=== PATIENT | male | born 1985 | race Caucasian/White ===

== ENCOUNTER 2020-12-21 00:20 | Inpatient (IN) | payer OTHER, SELFPAY ==
--- NOTE | 2020-12-21 | ECG_ITS ---
Test Reason : New admission. Check QTc Blood Pressure : / mmHG Vent. Rate : 057 BPM Atrial Rate : 057 BPM P-R Int : 136 ms QRS Dur : 088 ms QT Int : 432 ms P-R-T Axes : 056 066 058 degrees QTc Int : 420 ms Sinus bradycardia Otherwise normal ECG No previous ECGs available Referred By: Tonya Aguilar Electronically Signed By:Giuseppe Ahmadi
[2020-12-21 00:40] VITALS: BP 130/74; PULSE 70; RESP 18; TEMP 36.3; O2SAT 99
[2020-12-21 02:07] VITALS: BMI 23.7
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
[2020-12-21 08:24] VITALS: BP 121/84; PULSE 77; TEMP 36.4; O2SAT 99
[2020-12-21 08:45] VITALS: BP 121/84; PULSE 77
[2020-12-21] MEDS: lisinopriL 10 MG TABLET PO (08:45)
[2020-12-21] MEDS: Escitalopram Oxalate 20 MG TABLET PO (08:45)
[2020-12-21] MEDS: OXcarbazepine 300 MG TABLET PO ×2 (08:45→20:42)
[2020-12-21] MEDS: cloNIDine HCL 0.1 MG TABLET PO ×2 (08:45→20:42)
[2020-12-21 08:50] LABS: MANUAL DIFF FLAG NO
[2020-12-21 09:07] LABS: Basophils Percent Auto 0.8 % (0-2); Eosinophils Absolute Auto 0.3 X10*3/uL (0.0-0.4); Eosinophils Percent Auto 6.1 % (0-4); Hematocrit 41.5 % (42-52); Hemoglobin 14.1 g/dl (14.0-18.0); Imm Gran Abs Auto 0.01 X10*3/uL (0.00-0.03); Imm Gran Pct Auto 0.2 % (0.0-0.4); Lymphocytes Absolute Auto 1.7 X10*3/uL (1.2-4.9); Lymphocytes Percent Auto 33.5 % (20-40); Mean Corpuscular Hemoglobin 29.7 pg (27.0-33.0); Mean Corpuscular Volume 87.4 fL (80-98); Mean Platelet Volume 10.5 fL (9.4-12.4); Monocytes Absolute Auto 0.6 X10*3/uL (0.1-1.2); Monocytes Percent Auto 11.9 % (2-11); Neutrophils Absolute Auto 2.4 X10*3/uL (2.0-8.3); Neutrophils Percent Auto 47.5 % (45-73); Platelet Count 258 X10*3/uL (160-400); Red Blood Count 4.75 X10*6/uL (4.60-5.80); Red Cell Distribution Width 12.8 % (11.0-16.0)
[2020-12-21 09:41] LABS: Alanine Aminotransferase 20 U/L (0-40); Albumin Level 4.4 g/dL (3.5-5.0); Alkaline Phosphatase 60 U/L (39-117); Anion Gap 13 (12-20); Aspartate Amino Transferase 24 U/L (5-37); Bilirubin Total 0.8 mg/dL (0.0-1.0); Blood Urea Nitrogen 17 mg/dL (9-16); Calcium 9.5 mg/dL (8.4-10.2); Carbon Dioxide 26 mmol/L (22-29); Chloride 106 mmol/L (96-108); Creatinine Clr Calc Pharmacy 106.2; Estimated Glomerular Filt Rate > 60; Glucose Fasting 97 mg/dL (60-99); Potassium 4.2 mmol/L (3.3-5.1); Sodium 141 mmol/L (135-145); Total Protein 6.4 g/dL (6.5-8.0)
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
[2020-12-21 18:00] VITALS: BP 121/75; PULSE 82; RESP 18; TEMP 36.9; O2SAT 98
[2020-12-21 20:42] VITALS: BP 125/62; PULSE 60
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
[2020-12-22 06:00] VITALS: BP 116/75; PULSE 62; RESP 16; TEMP 36.6; O2SAT 100
--- NOTE | 2020-12-22 08:16 | ECG_ITS ---
Test Reason : SYNCOPE Blood Pressure : / mmHG Vent. Rate : 055 BPM Atrial Rate : 055 BPM P-R Int : 144 ms QRS Dur : 090 ms QT Int : 472 ms P-R-T Axes : 043 057 037 degrees QTc Int : 451 ms Sinus bradycardia Otherwise normal ECG When compared with ECG of 21-DEC-2020 14:04, T wave amplitude has increased in Anterior leads Referred By: Harinder Fritz Electronically Signed By:Giuseppe Ahmadi
[2020-12-22 08:40] LABS: Glucose, Whole Blood 104 mg/dL (60-115)
[2020-12-22 09:12] VITALS: BP 123/62; PULSE 61
[2020-12-22] MEDS: OXcarbazepine 300 MG TABLET PO ×2 (09:12→20:04)
[2020-12-22] MEDS: Escitalopram Oxalate 20 MG TABLET PO (09:12)
[2020-12-22] MEDS: lisinopriL 10 MG TABLET PO (09:12)
[2020-12-22] MEDS: cloNIDine HCL 0.1 MG TABLET PO ×2 (09:12→20:04)
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
[2020-12-22 10:11] LABS: Estimated Average Glucose 103 mg/dL; Hemoglobin A1c % 5.2 %
[2020-12-22 10:12] LABS: Cholesterol 189 mg/dL; HDL Cholesterol 69 mg/dL; LDL Cholesterol Calculated 113 mg/dl; Triglycerides 35 mg/dL
[2020-12-22 14:04] VITALS: BMI 22.6
[2020-12-22 18:00] VITALS: BP 143/92; PULSE 57; TEMP 36.4
[2020-12-22 20:04] VITALS: BP 143/92; PULSE 57
[2020-12-23 06:25] VITALS: BP 99/58; PULSE 60; RESP 16; TEMP 36.2; O2SAT 98
[2020-12-23] MEDS: OXcarbazepine 300 MG TABLET PO ×2 (08:40→21:44)
[2020-12-23] MEDS: Escitalopram Oxalate 20 MG TABLET PO (08:40)
[2020-12-23 08:42] VITALS: BP 115/55; BP 155/55; PULSE 64
[2020-12-23 21:44] VITALS: BP 154/90; PULSE 57
[2020-12-23] MEDS: cloNIDine HCL 0.1 MG TABLET PO (21:44)
[2020-12-24 06:00] VITALS: BP 112/70; PULSE 62; RESP 18; TEMP 36.2; O2SAT 100
[2020-12-24 08:26] VITALS: BP 111/67; PULSE 66
[2020-12-24] MEDS: cloNIDine HCL 0.1 MG TABLET PO (08:26)
[2020-12-24] MEDS: OXcarbazepine 300 MG TABLET PO ×2 (08:26→22:06)
[2020-12-24] MEDS: Escitalopram Oxalate 20 MG TABLET PO (08:26)
[2020-12-24 18:00] VITALS: BP 117/56; PULSE 75; TEMP 36.6
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
[2020-12-24 21:03] VITALS: BP 140/77; PULSE 62
[2020-12-25 06:00] VITALS: BP 118/80; PULSE 70; RESP 18; TEMP 36.4; O2SAT 99
[2020-12-25 08:32] VITALS: BP 138/86; PULSE 46
[2020-12-25] MEDS: cloNIDine HCL 0.1 MG TABLET PO (08:32)
[2020-12-25] MEDS: OXcarbazepine 300 MG TABLET PO ×2 (08:32→21:23)
[2020-12-25] MEDS: Escitalopram Oxalate 20 MG TABLET PO (08:33)
[2020-12-25 18:00] VITALS: BP 120/65; PULSE 86; TEMP 36.1
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
[2020-12-25 21:23] VITALS: BP 120/65; PULSE 86
[2020-12-26 06:00] VITALS: BP 143/82; PULSE 54; RESP 16; TEMP 36.2
[2020-12-26] MEDS: OXcarbazepine 300 MG TABLET PO (08:35)
[2020-12-26 08:36] VITALS: BP 143/82; PULSE 60
[2020-12-26] MEDS: cloNIDine HCL 0.1 MG TABLET PO (08:36)
[2020-12-26] MEDS: Escitalopram Oxalate 20 MG TABLET PO (08:37)
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
== END 2020-12-26 15:13 | disposition home or self-care (01) | DRG 882 ==
PROVIDERS: Psychiatry & Neurology Psychiatry; Admitting Provider Psychiatry & Neurology Psychiatry; Visit Provider Psychiatry & Neurology Psychiatry
DX: F43.12 Post-traumatic stress disorder, chronic (principal); I10 Essential (primary) hypertension; F10.11 Alcohol abuse, in remission; Z79.899 Other long term (current) drug therapy
CPT/HCPCS: 36415; 80053; 80061; 82947; 83036; 85025; 93005